=== PATIENT | female | born 1960 | race Caucasian/White ===

== ENCOUNTER 2020-09-03 17:32 | Inpatient (IN) | payer BC ==
[~2020-09-03 17:32] MED LIST: Dexamethasone 20 MG/5 ML VIAL ONE; Glycopyrrolate 0.2 MG/ML 5 ML SYRINGE ONE; Ketorolac Tromethamine 30 MG/ML VIAL ONE; Ondansetron PF 4 MG/2 ML Vial ONE; PHENYLEPHRINE-NS 100 MCG/ML 10 ML SYRINGE ONE; PROPOFOL 200 MG/20 ML VIAL ONE; Rocuronium Bromide 10 MG/ML (10ML VIAL) ONE; Succinylcholine 200 MG/10 ml SYRINGE FS ONE; ePHEDrine 50 MG/ML VIAL ONE
[2020-09-03] MEDS ORDERED: HumaLOG 300 UNITS/3 ML VIAL SC PRN (18:21)
[2020-09-03] MEDS ORDERED: Ondansetron PF 4 MG/2 ML Vial IVP PRN (18:21)
[2020-09-03] MEDS ORDERED: Dextrose 5% in Water 1,000 ML IV PRN ×2 (18:21→22:22)
[2020-09-03] MEDS ORDERED: hydrALAZINE 20 MG/ML VIAL SLOW IVP PRN (18:21)
[2020-09-03] MEDS ORDERED: Dextrose 50% Abboject 50 ML SYRINGE SLOW IVP PRN ×2 (18:21→22:22)
[2020-09-03] MEDS ORDERED: cefTRIAXone\\ROCEPHIN 2 GM VIAL ONE (18:29)
[2020-09-03] MEDS ORDERED: Rib Fracture Protocol IV SCH (18:30)
[2020-09-03] MEDS ORDERED: Sodium Chloride 0.9% 100 ML ONE (18:30)
[2020-09-03] MEDS ORDERED: Acetaminophen 500 MG TAB PO PRN (18:43)
[2020-09-03] MEDS ORDERED: traMADol HCl 50 MG TAB PO PRN (18:43)
[2020-09-03] MEDS ORDERED: Ibuprofen 600 MG TAB PO SCH (18:45)
[2020-09-03] MEDS ORDERED: Fentanyl 100 MCG/2 ML VIAL ONE ×2 (18:58→19:59)
[2020-09-03] MEDS ORDERED: Ketamine 50 MG/ML (10ML VIAL) ONE (18:58)
[2020-09-03] MEDS ORDERED: Albumin 5% 500 ML ONE (18:59)
[2020-09-03] MEDS ORDERED: Phenylephrine 10 MG/ML VIAL ONE (19:05)
[2020-09-03] MEDS ORDERED: Promethazine HCl 25 MG/ML VIAL SLOW IVP PRN (22:26)
[2020-09-03] MEDS ORDERED: HYDROcodone/Acetaminophen 5/325 mg Tablet PO PRN ×2 (22:26)
[2020-09-03] MEDS ORDERED: Ondansetron HCl/PF 4 MG/2 ML Vial IVP PRN (22:26)
[2020-09-03] MEDS ORDERED: Fentanyl 100 MCG/2 ML VIAL SLOW IVP PRN (22:26)
[2020-09-03] MEDS ORDERED: Morphine Sulfate 2 MG/ML SYRINGE SLOW IVP PRN (22:26)
[2020-09-03] MEDS ORDERED: Promethazine HCl 25 MG/ML VIAL IM PRN (22:26)
[2020-09-03] MEDS ORDERED: TETANUS AND DIPHTHERIA TOX/PF 0.5 ML DISP.SYRIN IM SCH (22:30)
[2020-09-03] MEDS ORDERED: Morphine 2 MG/ML VIAL SLOW IVP PRN (23:19)
[2020-09-04] MEDS: Lactated Ringer's 1,000 ML IV SCH ×4 (02:28→18:38)
[2020-09-04] MEDS: Ibuprofen 200 MG TAB PO SCH ×5 (02:28→18:31)
[2020-09-04] MEDS: Acetaminophen 325 MG TAB PO SCH ×5 (02:28→18:30)
[2020-09-04] MEDS: cefTRIAXone\\ROCEPHIN 2 GM in Sodium Chloride 0.9% 100 ML IVPB SCH ×2 (02:29→21:30)
[2020-09-04] MEDS: Famotidine/PF 20 mg/2ml Vial SLOW IVP SCH ×3 (02:29→21:31)
[2020-09-04] MEDS: Cyclobenzaprine 10 MG TAB PO SCH ×4 (02:29→21:31)
[2020-09-04] MEDS: traMADol HCl 50 MG TAB PO SCH ×5 (02:36→23:11)
[2020-09-04] MEDS: Ketorolac Tromethamine 30 MG/ML VIAL IVP SCH ×5 (02:37→23:08)
[2020-09-04] MEDS: Acetaminophen 650 MG Suppository PR SCH ×6 (02:40→23:08)
[2020-09-04 03:43] LABS: #Lymphocytes 0.8 thou/uL (1.20-3.40); #Monocytes 0.5 thou/uL (0.11-0.59); #Neutrophils 11.8 thou/uL (1.40-6.50); %Basophils 0.3 % (0.0-1.0); %Eosinophils 0.2 % (0.0-10.0); %Lymphocytes 5.9 % (21.0-51.0); %Monocytes 3.6 % (0.0-10.0); Hemoglobin 8.8 g/dL (12.0-16.0); Mean Corpuscular HGB CONC 33.9 g/dL (32.0-36.0); Mean Corpuscular Hemoglobin 31.3 pg (27.0-31.0); Mean Corpuscular Volume 92.5 fL (78.0-98.0); Mean Platelet Volume 8.4 fL (7.4-10.4); Platelet Count 183 thou/uL (130-400); RBC Distribution Width 11.1 % (11.5-14.5); Red Blood Cell (RBC) Count 2.81 mill/uL (4.20-5.40); White Blood Cell (WBC) Count 13.1 thou/uL (4.8-10.8)
[2020-09-04 03:48] LABS: Hemoglobin A1c 7.8 % (4.0-6.0)
[2020-09-04 03:56] LABS: Lactic Acid 3.1 mmol/L (0.5-2.2)
[2020-09-04 03:59] LABS: Phosphorus 3.9 mg/dL (2.3-4.7)
[2020-09-04 04:08] LABS: Anion Gap 18 mmol/L (10-20); BUN (Urea Nitrogen) 16 mg/dL (9.8-20.1); Calc. Creatinine Clearance 113 mL/min (70-130); Calcium 7.8 mg/dL (7.8-10.44); Carbon Dioxide 20 mmol/L (22-29); Chloride 105 mmol/L (98-107); Glucose 321 mg/dL (70-105); Magnesium 1.7 mg/dL (1.6-2.6); Potassium 4.5 mmol/L (3.5-5.1); Sodium 138 mmol/L (136-145)
[2020-09-04] MEDS ORDERED: Magnesium Sulfate 3 GM in Sodium Chloride 0.9% 100 ML IV SCH (08:00)
[2020-09-04] MEDS: HumaLOG 300 UNITS/3 ML VIAL SC PRN (11:12)
[2020-09-04] MEDS ORDERED: FLU VACC QS2020-21(6MOS UP)/PF 60 MCG/0.5 ML SYRINGE IM ONE (21:00)
[2020-09-04] MEDS: Chlorhexidine Gluconate 15 ML UDCUP SSP SCH (21:30)
[2020-09-05] MEDS: Ibuprofen 200 MG TAB PO SCH ×2 (01:02→06:10)
[2020-09-05] MEDS: Acetaminophen 325 MG TAB PO SCH ×4 (01:02→18:43)
[2020-09-05] MEDS: Lactated Ringer's 1,000 ML IV SCH ×4 (02:08→23:51)
[2020-09-05] MEDS: traMADol HCl 50 MG TAB PO SCH ×4 (06:09→23:53)
[2020-09-05] MEDS: Ketorolac Tromethamine 30 MG/ML VIAL IVP SCH ×4 (06:09→23:44)
[2020-09-05] MEDS: Acetaminophen 650 MG Suppository PR SCH (06:09)
[2020-09-05] MEDS: HumaLOG 300 UNITS/3 ML VIAL SC PRN (06:22)
[2020-09-05] MEDS ORDERED: traMADol HCl 50 MG TAB PO PRN (08:30)
[2020-09-05] MEDS: Cyclobenzaprine 10 MG TAB PO SCH ×3 (09:03→22:35)
[2020-09-05] MEDS: Famotidine/PF 20 mg/2ml Vial SLOW IVP SCH ×2 (09:03→22:36)
[2020-09-05] MEDS: Chlorhexidine Gluconate 15 ML UDCUP SSP SCH ×2 (09:03→22:35)
[2020-09-05] MEDS: Bacitracin 1 PK TOP SCH ×2 (09:07→22:35)
[2020-09-05] MEDS ORDERED: Rocuronium Bromide 10 MG/ML (10ML VIAL) ONE (10:14)
[2020-09-05] MEDS ORDERED: Ketorolac Tromethamine 30 MG/ML VIAL ONE (10:14)
[2020-09-05] MEDS ORDERED: Ondansetron PF 4 MG/2 ML Vial ONE (10:14)
[2020-09-05] MEDS ORDERED: PHENYLEPHRINE-NS 100 MCG/ML 10 ML SYRINGE ONE (10:14)
[2020-09-05] MEDS ORDERED: Dexamethasone 20 MG/5 ML VIAL ONE (10:14)
[2020-09-05] MEDS ORDERED: Glycopyrrolate 0.2 MG/ML 5 ML SYRINGE ONE (10:14)
[2020-09-05] MEDS ORDERED: Lidocaine 1% PF 5 ML VIAL ONE (10:14)
[2020-09-05] MEDS ORDERED: PROPOFOL 200 MG/20 ML VIAL ONE (10:14)
[2020-09-05 11:42] LABS: #Eosinphils 0.1 thou/uL (0.0-0.7); #Lymphocytes 2.5 thou/uL (1.20-3.40); #Monocytes 0.7 thou/uL (0.11-0.59); #Neutrophils 8.2 thou/uL (1.40-6.50); %Basophils 0.2 % (0.0-1.0); %Lymphocytes 21.3 % (21.0-51.0); %Monocytes 5.9 % (0.0-10.0); %Neutrophils 71.6 % (42.0-75.0); Hemoglobin 7.6 g/dL (12.0-16.0); Mean Corpuscular HGB CONC 33.3 g/dL (32.0-36.0); Mean Corpuscular Hemoglobin 31.6 pg (27.0-31.0); Mean Corpuscular Volume 94.8 fL (78.0-98.0); Mean Platelet Volume 8.4 fL (7.4-10.4); Platelet Count 159 thou/uL (130-400); Platelet Morphology Comment Appears Adequate; RBC Distribution Width 11.2 % (11.5-14.5); RBC Morphology Normal; Red Blood Cell (RBC) Count 2.42 mill/uL (4.20-5.40); White Blood Cell (WBC) Count 11.5 thou/uL (4.8-10.8)
[2020-09-05] MEDS ORDERED: Lidocaine 1% w/Epinephrine 1:100K 20 ML VIAL ONE (15:59)
[2020-09-05] MEDS ORDERED: Chlorhexidine Gluconate 15 ML UDCUP SSP ONE (15:59)
[2020-09-05] MEDS ORDERED: Fentanyl 250 MCG/5 ML VIAL ONE (16:40)
[2020-09-05] MEDS ORDERED: AFRIN NASAL MIST 15 ML BOT ONE (16:55)
[2020-09-05] MEDS ORDERED: Bacitracin Zinc Ointment 30 gm TUBE ONE (21:13)
[2020-09-05] MEDS ORDERED: HYDROmorphone 2 MG/ML VIAL SLOW IVP PRN (21:51)
[2020-09-05] MEDS ORDERED: Promethazine HCl 25 MG/ML VIAL SLOW IVP PRN (21:51)
[2020-09-05] MEDS ORDERED: Promethazine HCl 25 MG/ML VIAL IM PRN (21:51)
[2020-09-05] MEDS ORDERED: Ondansetron HCl/PF 4 MG/2 ML Vial IVP PRN (21:51)
[2020-09-05] MEDS ORDERED: Morphine 2 MG/ML VIAL SLOW IVP PRN (23:15)
[2020-09-05] MEDS ORDERED: Hydrocodone-Acetamin 15 ML UDCUP PO PRN (23:16)
[2020-09-05] MEDS: cefTRIAXone\\ROCEPHIN 2 GM in Sodium Chloride 0.9% 100 ML IVPB SCH (23:39)
[2020-09-05] MEDS: Dexamethasone 4 mg/ml Vial SLOW IVP SCH (23:45)
[2020-09-05] MEDS: Ibuprofen 100 MG/5 ML UDCUP PO SCH (23:50)
[2020-09-06] MEDS: HumaLOG 300 UNITS/3 ML VIAL SC PRN ×5 (00:09→20:41)
[2020-09-06] MEDS: Acetaminophen 325 MG TAB PO SCH ×4 (02:28→18:09)
[2020-09-06 06:03] LABS: #Lymphocytes 0.7 thou/uL (1.20-3.40); #Monocytes 0.2 thou/uL (0.11-0.59); #Neutrophils 9.9 thou/uL (1.40-6.50); %Eosinophils 0.2 % (0.0-10.0); %Lymphocytes 6.2 % (21.0-51.0); %Monocytes 1.6 % (0.0-10.0); %Neutrophils 91.9 % (42.0-75.0); Mean Corpuscular HGB CONC 32.9 g/dL (32.0-36.0); Mean Corpuscular Hemoglobin 30.6 pg (27.0-31.0); Mean Corpuscular Volume 93.1 fL (78.0-98.0); Mean Platelet Volume 8.6 fL (7.4-10.4); Platelet Count 174 thou/uL (130-400); RBC Distribution Width 11.1 % (11.5-14.5); White Blood Cell (WBC) Count 10.8 thou/uL (4.8-10.8)
[2020-09-06] MEDS: traMADol HCl 50 MG TAB PO SCH ×4 (06:05→23:52)
[2020-09-06] MEDS: Dexamethasone 4 mg/ml Vial SLOW IVP SCH ×4 (06:12→23:50)
[2020-09-06] MEDS: Ibuprofen 100 MG/5 ML UDCUP PO SCH ×2 (06:14→20:23)
[2020-09-06] MEDS: Lactated Ringer's 1,000 ML IV SCH (06:23)
[2020-09-06 06:26] LABS: Anion Gap 16 mmol/L (10-20); BUN (Urea Nitrogen) 22 mg/dL (9.8-20.1); Calc. Creatinine Clearance 129 mL/min (70-130); Calcium 7.7 mg/dL (7.8-10.44); Carbon Dioxide 19 mmol/L (22-29); Chloride 107 mmol/L (98-107); Glucose 283 mg/dL (70-105); Magnesium 2.2 mg/dL (1.6-2.6); Phosphorus 4.1 mg/dL (2.3-4.7); Potassium 4.8 mmol/L (3.5-5.1); Sodium 137 mmol/L (136-145)
[2020-09-06] MEDS: Chlorhexidine Gluconate 15 ML UDCUP SSP SCH ×4 (08:19→20:27)
[2020-09-06] MEDS: Ibuprofen 200 MG TAB PO SCH ×3 (08:28→22:10)
[2020-09-06] MEDS: Famotidine/PF 20 mg/2ml Vial SLOW IVP SCH ×2 (08:30→20:28)
[2020-09-06] MEDS: Bacitracin 1 PK TOP SCH ×3 (08:30→20:27)
[2020-09-06] MEDS: Cyclobenzaprine 10 MG TAB PO SCH ×3 (08:31→20:30)
[2020-09-06] MEDS: Ascorbic Acid 500 mg Chewable Tablet PO SCH (20:26)
[2020-09-06] MEDS: DULoxetine 60 MG CAP PO SCH (20:31)
[2020-09-06] MEDS: Acetaminophen 650 MG/20.3 ML UDCUP PO SCH (23:51)
[2020-09-07] MEDS: Ibuprofen 100 MG/5 ML UDCUP PO SCH ×4 (04:11→20:42)
[2020-09-07 05:12] LABS: #Monocytes 0.4 thou/uL (0.11-0.59); #Neutrophils 11.8 thou/uL (1.40-6.50); %Eosinophils 0.1 % (0.0-10.0); %Lymphocytes 7.3 % (21.0-51.0); %Monocytes 2.7 % (0.0-10.0); %Neutrophils 89.9 % (42.0-75.0); Hemoglobin 7.1 g/dL (12.0-16.0); Mean Corpuscular HGB CONC 33.4 g/dL (32.0-36.0); Mean Corpuscular Hemoglobin 31.1 pg (27.0-31.0); Mean Corpuscular Volume 93.2 fL (78.0-98.0); Mean Platelet Volume 8.3 fL (7.4-10.4); Platelet Count 216 thou/uL (130-400); RBC Distribution Width 11.3 % (11.5-14.5); Red Blood Cell (RBC) Count 2.27 mill/uL (4.20-5.40); White Blood Cell (WBC) Count 13.1 thou/uL (4.8-10.8)
[2020-09-07] MEDS: Acetaminophen 650 MG/20.3 ML UDCUP PO SCH ×3 (06:04→18:14)
[2020-09-07] MEDS: traMADol HCl 50 MG TAB PO SCH ×3 (06:05→18:16)
[2020-09-07] MEDS: Dexamethasone 4 mg/ml Vial SLOW IVP SCH (06:07)
[2020-09-07] MEDS: HumaLOG 300 UNITS/3 ML VIAL SC PRN ×4 (06:11→20:57)
[2020-09-07] MEDS: Aripiprazole 10 MG TAB PO SCH (08:18)
[2020-09-07] MEDS: Ferrous Sulfate 325 MG TAB PO SCH ×2 (08:18→18:13)
[2020-09-07] MEDS: DULoxetine 60 MG CAP PO SCH ×2 (08:18→20:44)
[2020-09-07] MEDS: Cyclobenzaprine 10 MG TAB PO SCH ×3 (08:19→20:44)
[2020-09-07] MEDS: Ascorbic Acid 500 mg Chewable Tablet PO SCH ×2 (08:19→20:45)
[2020-09-07] MEDS: Chlorhexidine Gluconate 15 ML UDCUP SSP SCH ×3 (08:19→20:45)
[2020-09-07] MEDS: Bacitracin 1 PK TOP SCH ×2 (08:20→20:45)
[2020-09-07] MEDS: Famotidine/PF 20 mg/2ml Vial SLOW IVP SCH (08:20)
[2020-09-07] MEDS ORDERED: Insulin Glargine 20 UNITS in Pre-Filled Syringe 1 EACH SC SCH (09:00)
[2020-09-07] MEDS ORDERED: Enoxaparin Sodium 40 MG/0.4 ML SYRINGE SC SCH (09:00)
[2020-09-08] MEDS: Acetaminophen 650 MG/20.3 ML UDCUP PO SCH ×5 (00:10→23:28)
[2020-09-08] MEDS: traMADol HCl 50 MG TAB PO SCH ×5 (00:10→23:28)
[2020-09-08] MEDS: Ibuprofen 100 MG/5 ML UDCUP PO SCH ×4 (02:51→20:49)
[2020-09-08] MEDS: HumaLOG 300 UNITS/3 ML VIAL SC PRN ×3 (05:43→16:09)
[2020-09-08 08:01] LABS: Hemoglobin 7.9 g/dL (12.0-16.0); Mean Corpuscular HGB CONC 33.8 g/dL (32.0-36.0); Mean Corpuscular Hemoglobin 31.5 pg (27.0-31.0); Mean Platelet Volume 7.9 fL (7.4-10.4); Platelet Count 297 thou/uL (130-400); RBC Distribution Width 11.4 % (11.5-14.5); Red Blood Cell (RBC) Count 2.51 mill/uL (4.20-5.40); White Blood Cell (WBC) Count 16.7 thou/uL (4.8-10.8)
[2020-09-08] MEDS: Ferrous Sulfate 325 MG TAB PO SCH ×2 (08:53→18:20)
[2020-09-08] MEDS: Aripiprazole 10 MG TAB PO SCH (08:55)
[2020-09-08] MEDS: DULoxetine 60 MG CAP PO SCH ×2 (08:56→20:54)
[2020-09-08] MEDS: Cyclobenzaprine 10 MG TAB PO SCH ×3 (08:56→20:54)
[2020-09-08] MEDS: Senokot S 8.6-50 MG TAB PO SCH ×2 (08:57→20:54)
[2020-09-08] MEDS: Ascorbic Acid 500 mg Chewable Tablet PO SCH ×2 (08:57→20:54)
[2020-09-08] MEDS: Insulin Glargine 35 UNITS in Pre-Filled Syringe 1 EACH SC SCH (08:58)
[2020-09-08] MEDS: Chlorhexidine Gluconate 15 ML UDCUP SSP SCH ×3 (08:58→20:54)
[2020-09-08] MEDS: Polyethylene Glycol 3350 17 GM Packet PO SCH (08:58)
[2020-09-08] MEDS: Enoxaparin Sodium 30 MG/0.3 ML SYRINGE SC SCH ×2 (08:58→20:49)
[2020-09-08] MEDS: Bacitracin 1 PK TOP SCH ×2 (08:59→20:54)
[2020-09-08] MEDS: Ondansetron PF 4 MG/2 ML Vial IVP PRN (09:11)
[2020-09-08] MEDS ORDERED: Aluminum & Magnesium Hydroxide 60 ML, Lidocaine 2% Viscous Solution 30 ML, diphenhydrAM... SSP PRN (18:51)
[2020-09-09] MEDS: Ibuprofen 100 MG/5 ML UDCUP PO SCH ×4 (02:53→21:07)
[2020-09-09] MEDS: traMADol HCl 50 MG TAB PO SCH ×3 (06:27→18:00)
[2020-09-09] MEDS: Acetaminophen 650 MG/20.3 ML UDCUP PO SCH ×3 (06:27→18:00)
[2020-09-09] MEDS: Aluminum & Magnesium Hydroxide 60 ML, Lidocaine 2% Viscous Solution 30 ML, diphenhydrAM... SSP SCH ×3 (06:31→18:02)
[2020-09-09] MEDS ORDERED: Ferrous Sulfate Drops 15 MG/ML BOT (PEDIATRIC) PO SCH ×2 (08:45→17:00)
[2020-09-09] MEDS: Chlorhexidine Gluconate 15 ML UDCUP SSP SCH ×3 (09:22→21:07)
[2020-09-09] MEDS: Insulin Glargine 35 UNITS in Pre-Filled Syringe 1 EACH SC SCH (09:23)
[2020-09-09] MEDS: Enoxaparin Sodium 30 MG/0.3 ML SYRINGE SC SCH ×2 (09:23→21:08)
[2020-09-09] MEDS: Bacitracin 1 PK TOP SCH ×2 (09:24→22:03)
[2020-09-09] MEDS: Cyclobenzaprine 10 MG TAB PO SCH ×3 (09:25→21:08)
[2020-09-09] MEDS: Polyethylene Glycol 3350 17 GM Packet PO SCH (09:26)
[2020-09-09] MEDS: Senokot S 8.6-50 MG TAB PO SCH ×2 (09:26→21:08)
[2020-09-09] MEDS: Ascorbic Acid 500 mg Chewable Tablet PO SCH ×2 (09:26→21:09)
[2020-09-09] MEDS: DULoxetine 60 MG CAP PO SCH ×2 (09:26→21:08)
[2020-09-09] MEDS: Aripiprazole 10 MG TAB PO SCH (09:26)
[2020-09-09] MEDS: Ferrous Sulfate 325 MG TAB PO SCH (11:22)
[2020-09-09 14:50] LABS: SARS-CoV-2 NAA Rapid Test Not Detected (NotDetected)
[2020-09-09] MEDS: Ondansetron PF 4 MG/2 ML Vial IVP PRN (18:16)
[2020-09-10] MEDS: Acetaminophen 650 MG/20.3 ML UDCUP PO SCH ×4 (00:22→18:18)
[2020-09-10] MEDS: traMADol HCl 50 MG TAB PO SCH ×4 (00:22→18:17)
[2020-09-10] MEDS: Ibuprofen 100 MG/5 ML UDCUP PO SCH ×4 (03:06→20:38)
[2020-09-10] MEDS: Chlorhexidine Gluconate 15 ML UDCUP SSP SCH ×3 (08:51→20:38)
[2020-09-10] MEDS: Aluminum & Magnesium Hydroxide 60 ML, Lidocaine 2% Viscous Solution 30 ML, diphenhydrAM... SSP SCH ×3 (08:51→18:19)
[2020-09-10] MEDS: DULoxetine 60 MG CAP PO SCH ×2 (08:52→20:39)
[2020-09-10] MEDS: Enoxaparin Sodium 30 MG/0.3 ML SYRINGE SC SCH ×2 (08:52→20:40)
[2020-09-10] MEDS: Bacitracin 1 PK TOP SCH ×2 (08:53→20:40)
[2020-09-10] MEDS: Aripiprazole 10 MG TAB PO SCH (08:53)
[2020-09-10] MEDS: Ascorbic Acid 500 mg Chewable Tablet PO SCH ×2 (08:54→20:39)
[2020-09-10] MEDS: Polyethylene Glycol 3350 17 GM Packet PO SCH (08:55)
[2020-09-10] MEDS: Cyclobenzaprine 10 MG TAB PO SCH ×3 (08:55→20:39)
[2020-09-10] MEDS: Senokot S 8.6-50 MG TAB PO SCH ×2 (08:55→20:38)
[2020-09-10] MEDS ORDERED: Insulin Regular 300 UNITS/3 ML VIAL SC PRN (10:13)
[2020-09-10] MEDS: Insulin Glargine 35 UNITS in Pre-Filled Syringe 1 EACH SC SCH (14:48)
[2020-09-11] MEDS: Acetaminophen 650 MG/20.3 ML UDCUP PO SCH ×5 (00:17→23:40)
[2020-09-11] MEDS: traMADol HCl 50 MG TAB PO SCH ×5 (00:18→23:40)
[2020-09-11] MEDS: Ibuprofen 100 MG/5 ML UDCUP PO SCH ×4 (03:38→20:50)
[2020-09-11] MEDS: Cyclobenzaprine 10 MG TAB PO SCH ×3 (08:54→20:50)
[2020-09-11] MEDS: Ascorbic Acid 500 mg Chewable Tablet PO SCH ×2 (08:54→20:51)
[2020-09-11] MEDS: Chlorhexidine Gluconate 15 ML UDCUP SSP SCH ×3 (08:55→20:50)
[2020-09-11] MEDS: Aripiprazole 10 MG TAB PO SCH (08:56)
[2020-09-11] MEDS: Polyethylene Glycol 3350 17 GM Packet PO SCH (08:56)
[2020-09-11] MEDS: Enoxaparin Sodium 30 MG/0.3 ML SYRINGE SC SCH ×2 (08:56→20:51)
[2020-09-11] MEDS: Senokot S 8.6-50 MG TAB PO SCH ×2 (08:56→20:50)
[2020-09-11] MEDS: DULoxetine 60 MG CAP PO SCH ×2 (08:56→20:51)
[2020-09-11] MEDS: Aluminum & Magnesium Hydroxide 60 ML, Lidocaine 2% Viscous Solution 30 ML, diphenhydrAM... SSP SCH ×3 (08:57→14:51)
[2020-09-11] MEDS: Bacitracin 1 PK TOP SCH ×2 (09:12→20:51)
[2020-09-11 10:17] LABS: Hemoglobin 8.7 g/dL (12.0-16.0); Mean Corpuscular HGB CONC 34.3 g/dL (32.0-36.0); Mean Corpuscular Hemoglobin 32.2 pg (27.0-31.0); Mean Platelet Volume 7.3 fL (7.4-10.4); Platelet Count 395 thou/uL (130-400); RBC Distribution Width 12.4 % (11.5-14.5); Red Blood Cell (RBC) Count 2.69 mill/uL (4.20-5.40)
[2020-09-11 10:36] LABS: Anion Gap 14 mmol/L (10-20); BUN (Urea Nitrogen) 10 mg/dL (9.8-20.1); Calc. Creatinine Clearance 180 mL/min (70-130); Calcium 7.7 mg/dL (7.8-10.44); Carbon Dioxide 22 mmol/L (22-29); Chloride 107 mmol/L (98-107); Glucose 119 mg/dL (70-105); Potassium 3.6 mmol/L (3.5-5.1); Sodium 139 mmol/L (136-145)
[2020-09-12] MEDS: Ibuprofen 100 MG/5 ML UDCUP PO SCH ×3 (02:31→13:55)
[2020-09-12] MEDS: traMADol HCl 50 MG TAB PO SCH ×2 (05:27→13:57)
[2020-09-12] MEDS: Acetaminophen 650 MG/20.3 ML UDCUP PO SCH ×2 (05:27→13:54)
[2020-09-12 07:19] VITALS: BMI 40.1
[2020-09-12] MEDS ORDERED: HumaLOG 300 UNITS/3 ML VIAL SC PRN (08:45)
[2020-09-12] MEDS: Aluminum & Magnesium Hydroxide 60 ML, Lidocaine 2% Viscous Solution 30 ML, diphenhydrAM... SSP SCH ×2 (09:29→13:58)
[2020-09-12] MEDS: Senokot S 8.6-50 MG TAB PO SCH (09:37)
[2020-09-12] MEDS: Polyethylene Glycol 3350 17 GM Packet PO SCH (09:37)
[2020-09-12] MEDS: DULoxetine 60 MG CAP PO SCH (09:46)
[2020-09-12] MEDS: Aripiprazole 10 MG TAB PO SCH (09:46)
[2020-09-12] MEDS: Ascorbic Acid 500 mg Chewable Tablet PO SCH (09:46)
[2020-09-12] MEDS: Bacitracin 1 PK TOP SCH (09:47)
[2020-09-12] MEDS: Enoxaparin Sodium 30 MG/0.3 ML SYRINGE SC SCH (09:50)
[2020-09-12] MEDS: Chlorhexidine Gluconate 15 ML UDCUP SSP SCH (09:50)
[2020-09-12] MEDS: Cyclobenzaprine 10 MG TAB PO SCH ×2 (10:14→16:51)
[2020-09-12 15:12] VITALS: BP 120/84; TEMP 99
[2020-09-12 16:53] LABS: SARS-CoV-2 PCR by NAA Not Detected (NotDetected)
== END 2020-09-12 17:04 | DRG 493 ==
LOC: SDC 17:32 → CCU 22:20 → SURG B 09-04 12:11
PROVIDERS: ADMIT Specialist; ATTEND Specialist
PROC: 0QSG04Z Reposition Right Tibia with Internal Fixation Device, Open Approach (ICD-10-PCS; principal; 2020-09-03)
PROC: 0PSH04Z Reposition Right Radius with Internal Fixation Device, Open Approach (ICD-10-PCS; 2020-09-03)
PROC: 0QSJ04Z Reposition Right Fibula with Internal Fixation Device, Open Approach (ICD-10-PCS; 2020-09-03)
PROC: 2W3LX1Z Immobilization of Right Lower Extremity using Splint (ICD-10-PCS; 2020-09-03)
DX: S82.841B Displaced bimalleolar fracture of right lower leg, initial encounter for open fracture type I or II (principal); S52.301A Unspecified fracture of shaft of right radius, initial encounter for closed fracture; S02.19XA Other fracture of base of skull, initial encounter for closed fracture; S02.841A Fracture of lateral orbital wall, right side, initial encounter for closed fracture; S02.611A Fracture of condylar process of right mandible, initial encounter for closed fracture; S02.66XA Fracture of symphysis of mandible, initial encounter for closed fracture; S22.41XA Multiple fractures of ribs, right side, initial encounter for closed fracture; S02.40CA Maxillary fracture, right side, initial encounter for closed fracture; S27.329A Contusion of lung, unspecified, initial encounter; S52.371A Galeazzi's fracture of right radius, initial encounter for closed fracture; D62 Acute posthemorrhagic anemia; E11.9 Type 2 diabetes mellitus without complications; I10 Essential (primary) hypertension; S92.001A Unspecified fracture of right calcaneus, initial encounter for closed fracture; E78.5 Hyperlipidemia, unspecified; S52.121A Displaced fracture of head of right radius, initial encounter for closed fracture; K80.80 Other cholelithiasis without obstruction; T14.8XXA Other injury of unspecified body region, initial encounter; E11.649 Type 2 diabetes mellitus with hypoglycemia without coma; E11.65 Type 2 diabetes mellitus with hyperglycemia; Z88.5 Allergy status to narcotic agent; V29.9XXA Motorcycle rider (driver) (passenger) injured in unspecified traffic accident, initial encounter; Y93.55 Activity, bike riding; Y92.9 Unspecified place or not applicable; Z79.82 Long term (current) use of aspirin; Z79.84 Long term (current) use of oral hypoglycemic drugs
CPT/HCPCS: 36415; 36416; 70486; 76000; 80048; 83036; 83605; 83735; 84100; 85025; 85027; 86850; 86900; 86901; 87635; 90471; 90732; 94640; C1713; C1769; G0009; J0696; J1100; J1650; J1815; J1885; J2270; J2370; J2405; J2704; J3010; J3475; J3490; J7620; P9045; Q0163; S0028; U0002; U0003; U0005

== ENCOUNTER 2020-12-05 10:21 | Outpatient (CLI) | payer BC ==
[2020-12-05 14:53] LABS: #Basophils 0.1 10x3/uL (0.0-0.2); #Eosinphils 0.2 10x3/uL (0.0-0.5); #Monocytes 0.4 10x3/uL (0.0-1.1); #Neutrophils 4.2 10x3/uL (1.5-8.4); %Basophils 0.8 % (0.0-2.0); %Eosinophils 2.9 % (0.0-6.0); %Lymphocytes 33.6 % (18.0-47.0); %Monocytes 4.8 % (0.0-10.0); %Neutrophils 57.6 % (40.0-75.0); Hemoglobin 12.6 g/dL (12.0-15.5); Mean Corpuscular HGB CONC 31.3 g/dL (32.0-36.0); Mean Corpuscular Hemoglobin 27.9 pg (27.0-33.0); Mean Corpuscular Volume 88.9 fl (81.6-98.3); Mean Platelet Volume 10.9 fl (7.4-10.4); Platelet Count 314 10x3/uL (150-450); Red Blood Cell (RBC) Count 4.52 10x6/uL (3.90-5.03); White Blood Cell (WBC) Count 7.2 10x3/uL (3.5-10.5)
[2020-12-05 18:27] LABS: SARS-CoV-2 PCR by NAA Not Detected (NotDetected)
== END 2020-12-05 10:22 | disposition home or self-care (01) ==
LOC: LABBT 10:21
PROVIDERS: ATTEND Orthopaedic Surgery
DX: Z01.812 Encounter for preprocedural laboratory examination (principal); Z98.890 Other specified postprocedural states; Z20.822 Contact with and (suspected) exposure to COVID-19
CPT/HCPCS: 85025; U0003; U0005

== ENCOUNTER 2020-12-08 05:56 | Day surgery (SDC) | payer BC ==
[2020-12-07 13:51] VITALS: BMI 33.6
[2020-12-08] MEDS ORDERED: Lidocaine 1% w/Epinephrine 1:100K 20 ML VIAL ONE (06:31)
[2020-12-08] MEDS ORDERED: Lidocaine 1% (PF) 30 ML VIAL ONE (06:31)
[2020-12-08] MEDS ORDERED: Fentanyl 100 MCG/2 ML VIAL ONE ×2 (06:47→07:56)
[2020-12-08] MEDS ORDERED: PROPOFOL 200 MG/20 ML VIAL ONE (08:02)
[2020-12-08] MEDS ORDERED: Dexamethasone 20 MG/5 ML VIAL ONE (08:02)
[2020-12-08] MEDS ORDERED: Lidocaine 1% PF 5 ML VIAL ONE (08:02)
[2020-12-08] MEDS ORDERED: Ondansetron PF 4 MG/2 ML Vial ONE (08:02)
== END 2020-12-08 10:30 | disposition home or self-care (01) ==
LOC: SDC 05:56
PROVIDERS: ATTEND Orthopaedic Surgery
PROC: 0YP90YZ Removal of Other Device from Right Lower Extremity, Open Approach (ICD-10-PCS; principal; 2020-12-08)
DX: S82.841E Displaced bimalleolar fracture of right lower leg, subsequent encounter for open fracture type I or II with routine healing (principal); Z79.4 Long term (current) use of insulin; Z79.899 Other long term (current) drug therapy; Z88.8 Allergy status to other drugs, medicaments and biological substances
CPT/HCPCS: 36416; 76000; J0690; J1100; J2001; J2405; J2704; J3010